=== PATIENT | female | born 1995 | race Caucasian/White ===

== ENCOUNTER 2020-10-29 08:22 | Observation (INO) | payer OTHER ==
[~2020-10-29] VITALS: Ht 162.6 cm; Wt 122.5 kg
[2020-10-29 09:14] LABS: RED BLOOD COUNT 4.73 M/UL (4.00-5.10); WHITE BLOOD COUNT 8.4 K/UL (4.5-11.0)
[2020-10-29 09:35] LABS: BUN/CREATININE RATIO 23 (0-10)
[2020-10-29] MEDS ORDERED: DAILY VITAMIN1 EAC2 PO (11:37)
[2020-10-29] MEDS ORDERED: TYLENOL EXTRA500 MG PO (11:38)
[2020-10-29] MEDS ORDERED: EXCEDRIN MIGRA1 EACH PO (11:38)
[2020-10-30 04:55] LABS: HEMOGLOBIN 12.6 gm/dl (12.3-15.3); RED BLOOD COUNT 4.59 M/UL (4.00-5.10); WHITE BLOOD COUNT 7.7 K/UL (4.5-11.0)
== END 2020-10-30 16:01 | disposition home or self-care (01) ==
LOC: ER1 08:22 → CDU 11:16 → MED SURG 4 12:26
PROVIDERS: Emergency Medicine; ADMIT Surgery
DX: R10.84 Generalized abdominal pain (principal); R11.0 Nausea; Z87.19 Personal history of other diseases of the digestive system; Z20.822 Contact with and (suspected) exposure to COVID-19
CPT/HCPCS: 36415; 80053; 81001; 83690; 84703; 85025; 85027; 96374; 96375; 96376; 99285; G0378; J2270; J2405; J3480; J7030; Q9967; U0002